=== PATIENT | male | born 1995 | race African-American/Black ===

== ENCOUNTER 2018-12-23 17:07 | Emergency (ER) | payer OTHER ==
[~2018-12-23] VITALS: Ht 177.8 cm; Wt 74.8 kg
[2018-12-23] MEDS: ONDANSETRON ODT 4 MG TAB PO ONE (20:38)
[2018-12-23 20:40] VITALS: BP 114/81
== END 2018-12-23 20:50 | disposition home or self-care (01) ==
LOC: ER 17:19
DX: S06.9X9A Unspecified intracranial injury with loss of consciousness of unspecified duration, initial encounter (principal); F07.81 Postconcussional syndrome; M54.2 Cervicalgia; W22.8XXA Striking against or struck by other objects, initial encounter; Y93.89 Activity, other specified; Y92.89 Other specified places as the place of occurrence of the external cause; Y99.8 Other external cause status
CPT/HCPCS: 70450; 72125; Q0162

== ENCOUNTER 2023-06-03 11:01 | Emergency (ER) | payer MEDICAID, OTHER ==
[~2023-06-03] VITALS: Ht 177.8 cm; Wt 79.9 kg
[2023-06-03 14:15] VITALS: BP 114/64; PULSE 100; RESP 16; TEMP 97.9; O2SAT 95
[2023-06-03 15:07] LABS: Basophils # (auto) 0.1 10 ^3/uL (0-0.2); Eosinophils # (auto) 0.1 10 ^3/uL (0-0.8); Eosinophils % (auto) 1.7 % (0.0-7.0); Hematocrit 42.5 % (41.0-53.0); Hemoglobin 14.2 g/dL (13.5-17.5); Lymphocytes # (auto) 1.8 10 ^3/uL (0.4-5.4); Lymphocytes % (auto) 34.6 % (10.0-50.0); Mean Corpuscular Hemoglobin 30.4 pg (28.0-32.0); Mean Corpuscular Hgb Conc. 33.5 g/dL (32.0-36.0); Mean Corpuscular Volume 90.7 fL (80.0-100.0); Monocytes # (auto) 0.6 10 ^3/uL (0-1.3); Neutrophils # (auto) 2.7 10 ^3/uL (1.6-8.6); Neutrophils % (auto) 51.7 % (37.0-80.0); Nucleated Red Blood Cells % 0.1 %; Red Blood Cells 4.69 10^6/uL (4.5-5.90); Red Cell Distribution Width 12.7 % (11.8-14.3); White Blood Cell 5.3 10^3/uL (4.4-10.8)
[2023-06-03 15:11] LABS: Chloride 104 mmol/L (98-107); Potassium 3.7 mmol/L (3.5-5.1); Sodium 139 mmol/L (136-145)
[2023-06-03 15:12] LABS: Anion Gap 5 (5-15); Calcium 9.5 mg/dL (8.5-10.1); Carbon Dioxide 30 mmol/L (20-30)
[2023-06-03 15:17] LABS: BUN/Creatinine Ratio 9.9 (10.0-20.0); Blood Urea Nitrogen 9 mg/dL (9-23); Glucose 91 mg/dL (74-106)
== END 2023-06-03 16:57 | disposition home or self-care (01) ==
LOC: ER 11:01
DX: K62.1 Rectal polyp (principal)
CPT/HCPCS: 36415; 74177; 80048; 85025; 99285; Q9967